=== PATIENT | male | born 1995 | race African-American/Black ===

== ENCOUNTER 2017-03-19 22:18 | Emergency (ER) | payer SELFPAY ==
[~2017-03-19] VITALS: Ht 180.3 cm; Wt 65.8 kg
--- NOTE | 2017-03-19 22:43 | NUR ---
MD TO PT BEDSIDE, PT PRESENTING WITH TOOTH PAIN. PT ADVISED TO SEEK DENTAL SERVICES BREE. MD TO WRITE RX FOR ABX AND PAIN MEDICATION. PT STATES NEEDING PAIN MEDICATION NOW, REQUESTING FIRST DOSE BEFORE DISCHARGE. PT STATES HE HAS TRANSPORTATION PROVIDED BY FRIENDS '[facility]' AND '[facility]', PERSONS IN WAITING ROOM VERIFIED BY NURSE.
[2017-03-19] MEDS ORDERED: PENICILLIN V POTASSIUM 500 MG TABLET PO ONE ×2 (22:54→23:00)
[2017-03-19] MEDS ORDERED: oxyCODONE/APAP (5/325 MG) 1 UDTAB TABLET ONE (22:54)
[2017-03-19] MEDS ORDERED: oxyCODONE/APAP (5/325 MG) 1 UDTAB TABLET PO ONE (23:00)
--- NOTE | 2017-03-19 23:08 | NUR ---
Patient discharged to home in stable condition. Written and verbal after care instructions given. Patient verbalizes understanding of instruction. RX GIVEN TO PT FOR ABX AND PAIN MEDS. PT HAS TRANSPORTATION PROVIDED. Ambulatory with a steady gait
[2017-03-19 23:11] VITALS: BP 108/58
== END 2017-03-19 23:12 | disposition home or self-care (01) ==
LOC: ER 22:22
DX: K08.89 Other specified disorders of teeth and supporting structures (principal); G89.29 Other chronic pain
CPT/HCPCS: 99283; A4606; Z7610